=== PATIENT | female | born 1955 | race Caucasian/White ===

== ENCOUNTER → 2024-05-28 17:53 | Outpatient (REF) | payer OTHER, SELFPAY | LOC: WDC 17:53 | PROVIDERS: ATTENDING PHYSICIAN Physician Assistant Medical | DX: Z12.31 Encounter for screening mammogram for malignant neoplasm of breast (principal) | CPT/HCPCS: 77063; 77067 ==

== ENCOUNTER 2024-07-18 04:52 | Emergency (ER) | payer OTHER, SELFPAY ==
[2024-07-18] VITALS (7 sets, daily range): BP systolic 130–142; BP diastolic 60–92; BMI 33.3
--- NOTE | 2024-07-18 06:17 | ED.GENMED ---
History of Present Illness
General
Chief Complaint: Musculo-Skeletal Complaint
Time Seen by Provider: 07/18/24 06:17
History of Present Illness
History of Present Illness:
HPI: Patient presents with increasing low back pain along with some paresthesias and weakness to the lower extremities right greater than left. She has some degree of dementia and is somewhat of a limited historian. Over the last 2 days, she has
been having increasing gait dysfunction to the point that her legs give out when she walks.
EXAM:
GENERAL: Well appearing in no distress
HEENT: Moist oral mucosa
CARDIOVASCULAR: No murmurs, normal heart rate, regular rhythm, No chest wall tenderness
PULMONARY: No respiratory distress, breath sounds are clear and equal
ABDOMEN: Soft with no peritoneal signs, no tenderness
NEUROLOGIC: Good upper extremity strength, she appears to have some decreased ranked in the lower extremity when she tries to flex at the hip, no coordination deficits, there appears to be right greater than left weakness into dorsiflexion
BACK: No significant lumbar tenderness
PSYCHIATRIC: She knows it Moni however she does have mild cognitive deficits
EXTREMITIES: Nontender, no edema, moves all extremities equally but does have weakness in the lower extremities
SKIN: No rash, no lesions
TIME OF INITIAL ENCOUNTER: 6:20 AM
NUMBER AND COMPLEXITY OF PROBLEMS ADDRESSED AT THE ENCOUNTER
� Chronic conditions affecting care: High blood pressure, chronic back pain, hyperlipidemia, has had back surgery in 2008, sarcoidosis
� Acute Exacerbation and/or Progression of Chronic Illness: This is an acute problem
� Differential Diagnosis includes: Acute low back pain, cauda equina syndrome, herniated disc, spinal stenosis
AMOUNT AND/OR COMPLEXITY OF DATA TO BE REVIEWED AND ANALYZED
� I performed an independent evaluation of and my interpretation is:
EKG:
CT:
X-rays:
Laboratory Studies: White count 4.7, hemoglobin normal, chemistries unremarkable
Other: MRI personally viewed and agree with radiologist interpretation
� Review of other/old records: The patient was seen here 2019 with back pain
� Clinical information was obtained by an independent historian: I spoke to the at bedside
� Prescriptions/Medications Considered but not given: Considered narcotic analgesia however the patient declines
� Further testing considered but not performed:
RISK OF COMPLICATIONS AND/OR MORBIDITY OR MORTALITY OF PATIENT MANAGEMENT
� Social determinants of health affecting care: Lives at home with
� Discussion with other providers: I discussed case with Dr. Cho. I informed him of the MRI report�the patient is to follow . She was an outpatient.
� Escalation of care including admission/observation vs risk of discharge considered: The patient took Tylenol this morning and does not have much pain at rest however she has significant dysfunction when she tries to walk
disease I personally tried to check her gait in the emergency department and she nearly fell with taking 1 step)�trying to obtain MRI. She initially declined analgesia but intermittently does have pain with some movement in the bed�will try Toradol
and Decadron. Overall on reassessment after she came back from MRI, she is improved. She was assisted to the bathroom by her and was able to walk back on her own with minimal difficulty.
Past History
Past History
ED Past Medical History: None; Negative CAD, HTN or Hypercholesterolemia
ED Past Surgical History: Orthopedic
Social History
Personal:
Living: with family
Phy Exam
Physical Exam
Physical Exam:
See HPI
Course
Orders/Labs/Results
Orders:
Orders
07/18/24 06:27
MR Lumbar Without Contrast Urgent
Comment:
Reason For Exam: inc LBP, acute gait dysfunction
Recent pill cam endoscopy?: No
07/18/24 06:59
Basic Metabolic Panel Urgent
Complete Blood Count/With Diff Urgent
07/18/24 07:38
Dexamethasone Sod Phosphate [Decadron] 10 mg IV NOW STA
Ketorolac [Toradol] 15 mg IV NOW STA
07/18/24 11:08
0.9% Sodium Chloride 500 ml [Nss] 500 ml IV BOLUS
Abnormal Lab Results
07/18/24
06:59
WBC 4.7 L 10^3/uL
(4.8-10.8)
Absolute Lymphs (auto) 1.1 L 10^3/uL
(1.2-3.4)
Glucose 131 H mg/dl
(70-99)
07/18/24 06:59
07/18/24 06:59
Vital Signs
Initial and Last Documented VS:
Initial Vital Signs
Temp Pulse Resp BP Pulse Ox
97.8 F 76 20 137/92 97
07/18/24 04:57 07/18/24 04:57 07/18/24 04:57 07/18/24 04:57 07/18/24 04:57
Last Documented Vital Signs
Temp Pulse Resp BP Pulse Ox
97.8 F 76 18 132/86 98
07/18/24 04:57 07/18/24 12:19 07/18/24 12:19 07/18/24 12:19 07/18/24 12:19
*Critical Care Note
Total Time (30-74mins, 75-104mins- exclusive of procedures): Not Applicable
ED Attending Note
-
Portions of this chart may have been created with voice recognition software.� Occasional wrong word or��sound alike� substitutions may have occurred due to the inherent limitations of voice recognition software.
Discharge Plan
Departure
Patient Disposition: Home (Routine Discharge)
Date of Disposition: 07/18/24
Time of Disposition: 11:50
Patient with high blood pressure during this ER visit?: Yes
Discharge Problem:
Back pain
Instructions: Back Exercises, Back Pain, BLOOD PRESSURE
Prescriptions:
New
prednisone 50 mg tablet
50 mg PO DAILY Qty: 4 0RF
No Action
ascorbic acid (vitamin C) [Vitamin C] 500 MG tablet
500 mg PO DAILY
Patient Comments:
'OFF ALL VITAMINS DUE FOR SURGERY'
Fish Oil
2 cap PO DAILY
Multivitamin
1 tab PO DAILY
Vitamin E
1 tab PO DAILY
acetaminophen-codeine 1 TABLET tablet
1 tab PO Q4HPRN PRN (Reason: severe pain) Qty: 15 0RF
Referrals:
Андрей García MD [Active] - Follow up in 2-3 days
Gaetano Roberts PA-C [Family Provider] -
Activity Restrictions/Additional Instructions:
The MRI showed: 'Moderate central canal stenosis and right lateral recess stenosis at L2/L3 secondary to severe right-sided facet joint arthrosis and a 1.2 cm inflammatory soft tissue mass or complex cyst located in the right posterolateral epidural
space along the anterior margin of the right facet joint'.�I discussed this with the orthopedic surgeon on-call for [facility] (Dr. Lancaster was associated with [facility] in the past). He recommends that you follow-up with Dr. García or Dr. Blackman -call their
office for an appointment. Next dose of steroids tomorrow. Return if worse or any other concerns. Basic blood work was normal.
Interventions
Interventions:
*Risk Screen - Suicide Last Done: 07/18/24 04:52
*General Assessment Last Done: 07/18/24 04:57
*Neglect/Abuse Screening Last Done: 07/18/24 04:57
ED- Fall Risk Assessment Last Done: 07/18/24 04:57
*ED COVID-19 Vaccine History Last Done: 07/18/24 04:57
*Nursing Disposition Last Done: 07/18/24 12:19
ED-Musculoskeletal Assessment Last Done: 07/18/24 05:19
Discharge Date and Time
Discharge Date/Time: 07/18/24 12:20
Print Language: OCCITAN
[2024-07-18 07:11] LABS: % Basophils 0.4 % (0-2); % Eosinophils 1.1 % (0-6); % Immature Granulocytes 0.2 % (0-0.5); % Lymphocytes 24.2 % (20.5-51.1); % Monocytes 6.9 % (1.7-9.3); % Neutrophils 67.2 % (42.2-75.2); Absolute Eosinophils 0.1 10^3/uL (0-0.7); Absolute Lymphocytes 1.1 10^3/uL (1.2-3.4); Absolute Monocytes 0.3 10^3/uL (0.1-0.6); Absolute Neutrophils 3.1 10^3/uL (1.4-6.5); Hematocrit 41.2 % (37.0-47.0); Hemoglobin 14.7 g/dL (12.0-16.0); Mean Corp Hgb Conc. 35.7 g/dL (33.0-37.0); Mean Corpuscular Hgb 29.7 pg (27.0-31.0); Mean Corpuscular Volume 83.2 fL (81.0-99.0); Mean Platelet Volume 10.2 fL (7.4-10.4); Nucleated Red Blood Cells % 0 %; Platelet Count 141 10^3/uL (130-400); Red Blood Cell Count 4.95 10^6/uL (4.20-5.40); Red Cell Dist. Width 12.1 % (11.5-14.5); White Blood Cell Count 4.7 10^3/uL (4.8-10.8)
[2024-07-18 07:32] LABS: Blood Urea Nitrogen 15 mg/dl (7-17); Calcium 10.1 mg/dl (8.4-10.2); Carbon Dioxide 25 mmol/L (22-30); Chloride 106 mmol/L (98-107); Estimated Creatinine Clearance 84 ml/min; Glucose 131 mg/dl (70-99); Sodium 142 mmol/L (135-145); eGFR > 60.00
[2024-07-18] MEDS: DECADRON 10 MG IV (07:50)
[2024-07-18] MEDS: TORADOL 15 MG IV (07:51)
== END 2024-07-18 12:20 | disposition home or self-care (01) ==
LOC: EMR 04:52
PROVIDERS: EMERGENCY PHYSICIAN Emergency Medicine; FAMILY PHYSICIAN Physician Assistant Medical
DX: M54.9 Dorsalgia, unspecified (principal); R20.2 Paresthesia of skin; R53.1 Weakness; F03.90 Unspecified dementia, unspecified severity, without behavioral disturbance, psychotic disturbance, mood disturbance, and anxiety
CPT/HCPCS: 99284; 72148; 80048; 85025

== ENCOUNTER → 2024-11-04 08:55 | Outpatient (REF) | payer OTHER, SELFPAY | LOC: RAD 08:55 | PROVIDERS: ATTENDING PHYSICIAN Physician Assistant Medical | DX: I10 Essential (primary) hypertension (principal); M25.561 Pain in right knee | CPT/HCPCS: 73564 ==

== ENCOUNTER → 2025-08-25 10:28 | Outpatient (REF) | payer OTHER, SELFPAY | LOC: WDC 10:28 | PROVIDERS: ATTENDING PHYSICIAN Physician Assistant Medical | DX: Z12.39 Encounter for other screening for malignant neoplasm of breast (principal); Z12.31 Encounter for screening mammogram for malignant neoplasm of breast | CPT/HCPCS: 77063; 77067 ==